=== PATIENT | male | born 1965 | race African-American/Black ===

== ENCOUNTER 2017-02-15 13:34 | Inpatient (IN) | payer OTHER ==
[2017-02-15] MEDS ORDERED: ONDANSETRON 4 MG TAB.RAPDIS SL ONE (14:22)
--- NOTE | 2017-02-15 14:23 | ER Document Report ---
ED Medical Screen (RME) - General Chief Complaint: Abdominal Pain Stated Complaint: STOAMCH PAIN Time seen by provider: 14:22 Mode of Arrival: Ambulatory Information source: Patient TRAVEL OUTSIDE OF THE [place] IN LAST 30 DAYS: No - HPI Patient complains to provider of: abdominal pain, nausea, vomiting Onset: This morning Onset/Duration: Sudden Quality of pain: Sharp Severity: Moderate Pain Level: 4 Associated Symptoms: Abdominal pain, Nausea, Vomiting Exacerbated by: Denies Relieved by: Denies Similar symptoms previously: No Recently seen / treated by doctor: No Notes: 02/15/17 14:23 Patient is a 51-year-old male with a history of asthma, who presents to emergency room complaining of epigastric abdominal pain with nausea and vomiting that started suddenly this morning, his last bowel movement was on Tuesday and was without blood, he denies any dysuria, no fever or chills, no sick contacts, no previous surgeries on the abdomen, he attempted to take Pepto- Bismol at home but vomited it back up immediately - Related Data Allergies/Adverse Reactions: No Known Allergies Allergy (Unverified 02/15/17 13:51) Past Medical History Renal/ Medical History: Denies: Hx Peritoneal Dialysis Physical Exam - Vital signs Vitals: Temp Pulse Resp BP Pulse Ox 97.6 F 89 24 H 156/95 H 100 02/15/17 13:49 02/15/17 13:49 02/15/17 13:49 02/15/17 13:49 02/15/17 13:49 Course - Vital Signs Vital signs: Temp Pulse Resp BP Pulse Ox 97.6 F 89 24 H 156/95 H 100 02/15/17 13:49 02/15/17 13:49 02/15/17 13:49 02/15/17 13:49 02/15/17 13:49
[2017-02-15 14:41] LABS: ABSOLUTE LYMPHOCYTES (AUTO) 0.7 10^3/uL (0.5-4.7); ABSOLUTE MONOCYTES (AUTO) 0.4 10^3/uL (0.1-1.4); ABSOLUTE NEUT (AUTO) 8.3 10^3/uL (1.7-8.2); BASOPHILS % (AUTO) 0.4 % (0-2); EOSINOPHILS % (AUTO) 0.1 % (0-6); HEMATOCRIT 49.6 % (37.9-51.0); HGB HCT DIFFERENCE 1.4; LYMPHOCYTES % (AUTO) 7.9 % (13-45); MEAN CORPUSCULAR HEMOGLOBIN 32.3 pg (27.0-33.4); MEAN CORPUSCULAR HGB CONC 34.4 g/dL (32.0-36.0); MEAN CORPUSCULAR VOLUME 94 fl (80-97); MONOCYTES % (AUTO) 4.1 % (3-13); RED BLOOD COUNT 5.28 10^6/uL (4.35-5.55); RED CELL DISTRIBUTION WIDTH 13.7 % (11.5-14.0); SEGMENTED NEUTROPHILS % (AUTO) 87.5 % (42-78); WHITE BLOOD COUNT 9.5 10^3/uL (4.0-10.5)
[2017-02-15 14:47] LABS: APPEARANCE,URINE CLEAR; BILIRUBIN,URINE NEGATIVE (NEGATIVE); GLUCOSE, URINE 50 mg/dL (NEGATIVE); KETONES,URINE 80 mg/dL (NEGATIVE); LEUKOCYTE ESTERASE,URINE NEGATIVE (NEGATIVE); NITRITE,URINE NEGATIVE (NEGATIVE); PROTEIN,URINE 30 mg/dL (NEGATIVE); URINE SPECIFIC GRAVITY 1.025; UROBILINOGEN,URINE NEGATIVE mg/dL (<2.0)
[2017-02-15 15:02] LABS: ALANINE AMINOTRANSFERASE 100 U/L (21-72); ALBUMIN 4.3 g/dL (3.5-5.0); ALKALINE PHOSPHATASE 87 U/L (38-126); ANION GAP 14 (5-19); ASPARTATE AMINO TRANSFERASE 105 U/L (17-59); BILIRUBIN,DIRECT 0.6 mg/dL (0.0-0.4); BILIRUBIN,TOTAL 1.6 mg/dL (0.2-1.3); BLOOD UREA NITROGEN 11 mg/dL (7-20); CALCIUM 9.5 mg/dL (8.4-10.2); CARBON DIOXIDE 26 mmol/L (22-30); CHLORIDE 99 mmol/L (98-107); CREATININE RESULT 0.81 mg/dL (0.52-1.25); GLUCOSE 168 mg/dL (75-110); POTASSIUM 4.4 mmol/L (3.6-5.0); SODIUM 138.8 mmol/L (137-145); TOTAL PROTEIN 7.7 g/dL (6.3-8.2)
[2017-02-15 15:32] LABS: LIPASE 5513.7 U/L (23-300)
[2017-02-15] MEDS ORDERED: NORMAL SALINE 1000 ML 1,000 ML IV ONE ×2 (17:08)
[2017-02-15] MEDS ORDERED: HYDROMORPHONE HCL INJ/PF 2 MG/ML AMPULE IV ONE (17:10)
[2017-02-15] MEDS ORDERED: ONDANSETRON HCL INJ/PF 4 MG/2 ML SDV IV ONE (17:10)
--- NOTE | 2017-02-15 17:11 | ER Document Report ---
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 He says he has a history of asthma. States he been drinking alcohol about a half a pint of brown oil a day. He says he stopped on Tuesday pain started this morning. States he has been nauseated vomiting about 10-11 times today. His last bowel movement was on Tuesday. Denies any previous surgeries. States he took some Pepto-Bismol at home and vomited it right back up. TRAVEL OUTSIDE OF THE [place] IN LAST 30 DAYS: No - HPI Patient complains to provider of: Abdominal pain, Vomiting Onset: This morning Timing/Duration: Gradual Quality of pain: Burning, Sharp Severity at maximum: Severe Severity in ED: Severe Pain Level: 5 Location: Epigastric Associated symptoms: Nausea, Vomiting Exacerbated by: Movement, Walking, Food Relieved by: Denies Similar symptoms previously: Yes Recently seen / treated by doctor: No - Related Data Allergies/Adverse Reactions: No Known Allergies Allergy (Unverified 02/15/17 13:51) Past Medical History - General Information source: Patient - Social History Smoking Status: Current Every Day Smoker Cigarette use (# per day): Yes - ppd Chew tobacco use (# tins/day): No Smoking Education Provided: Yes - less than 2 min Frequency of alcohol use: Heavy - 1/2 pipe of [place] a day till Tuesday he quit Drug Abuse: None Occupation: building bridges Lives with: Alone, Other - rooming house while building a bridge Family History: CAD, CVA, DM, Hyperlipidemia, Hypertension, Malignancy, Thyroid Disfunction Patient has suicidal ideation: No Patient has homicidal ideation: No - Past Medical History Cardiac Medical History: Reports: None Pulmonary Medical History: Reports: Hx Asthma EENT Medical History: Reports: None Neurological Medical History: Reports: None Endocrine Medical History: Reports: None Renal/ Medical History: Reports: None Malignancy Medical History: Reports None GI Medical History: Reports: None Musculoskeltal Medical History: Reports None Skin Medical History: Reports None Psychiatric Medical History: Reports: None Traumatic Medical History: Reports: None Infectious Medical History: Reports: None Surgical Hx: Negative Past Surgical History: Reports: None - Immunizations Hx Diphtheria, Pertussis, Tetanus Vaccination: No Review of Systems - Review of Systems Constitutional: Recent illness EENT: No symptoms reported Cardiovascular: No symptoms reported Respiratory: No symptoms reported Gastrointestinal: Abdominal pain, Nausea, Vomiting Genitourinary: No symptoms reported Male Genitourinary: No symptoms reported Musculoskeletal: No symptoms reported Skin: No symptoms reported Hematologic/Lymphatic: No symptoms reported Neurological/Psychological: No symptoms reported -: Yes All other systems reviewed and negative Physical Exam - Vital signs Vitals: Temp Pulse Resp BP Pulse Ox 97.6 F 89 24 H 156/95 H 100 02/15/17 13:49 02/15/17 13:49 02/15/17 13:49 02/15/17 13:49 02/15/17 13:49 Interpretation: Normal - General General appearance: Appears well, Alert - HEENT Head: Normocephalic, Atraumatic Eyes: Normal Pupils: PERRL - Respiratory Respiratory status: No respiratory distress Chest status: Nontender Breath sounds: Normal Chest palpation: Normal - Cardiovascular Rhythm: Regular Heart sounds: Normal auscultation Murmur: No - Abdominal Inspection: Normal Distension: No distension Bowel sounds: Normal Tenderness: Tender - Right mid abdominal tenderness, Guarding Organomegaly: No organomegaly - Back Back: Normal, Nontender - Extremities General upper extremity: Normal inspection, Nontender, Normal color, Normal ROM , Normal temperature General lower extremity: Normal inspection, Nontender, Normal color, Normal ROM , Normal temperature, Normal weight bearing. No: Milo's sign - Neurological Neuro grossly intact: Yes Cognition: Normal Orientation: AAOx4 [place] Coma Scale Eye Opening: Spontaneous [place] Coma Scale Verbal: Oriented [place] Coma Scale Motor: Obeys Commands [place] Coma Scale Total: 15 Speech: Normal Motor strength normal: LUE, RUE, LLE, RLE Sensory: Normal - Psychological Associated symptoms: Normal affect, Normal mood - Skin Skin Temperature: Warm Skin Moisture: Dry Skin Color: Normal Course - Vital Signs Vital signs: Temp Pulse Resp BP Pulse Ox 97.6 F 89 24 H 156/95 H 100 02/15/17 13:49 02/15/17 13:49 02/15/17 13:49 02/15/17 13:49 02/15/17 13:49 - Laboratory Result Diagrams: 02/15/17 14:25 02/15/17 14:25 Laboratory results interpreted by me: 02/15/17 02/15/17 02/15/17 14:25 14:25 14:25 Seg Neutrophils % 87.5 H Lymphocytes % 7.9 L Absolute Neutrophils 8.3 H Glucose 168 H Total Bilirubin 1.6 H Direct Bilirubin 0.6 H AST 105 H ALT 100 H Lipase 5513.7 H Urine Protein 30 H Urine Glucose (UA) 50 H Urine Ketones 80 H - Consults Dr. Barton Time consulted: 17:16 Reason for consultation: 02/15/17 17:16 Abdominal pain lipase 5500, pancreatitis, needs admission. Consulted provider: will come to ER Discharge - Discharge Clinical Impression: Pancreatitis, alcoholic, acute Qualifiers: Acute pancreatitis complication: unspecified Qualified Code(s): K85.20 - Alcohol induced acute pancreatitis without necrosis or infection Disposition: ADMITTED INPATIENT Admitting Provider: Eleazar Alvarenga Unit Admitted: Telemetry
[2017-02-15] MEDS ORDERED: ACETAMINOPHEN 325 MG TABLET PO PRN (18:27)
[2017-02-15] MEDS ORDERED: ONDANSETRON HCL INJ/PF 4 MG/2 ML SDV IV PRN (18:27)
[2017-02-15] MEDS ORDERED: DEXTROSE 50%-WATER 25 GM/50 ML DISP.SYRIN IV PRN ×2 (18:27)
[2017-02-15] MEDS ORDERED: DEXTROSE 40% GEL 15 GM TUBE PO PRN ×2 (18:27)
[2017-02-15] MEDS ORDERED: GLUCAGON,HUMAN RECOMB 1 MG INJ SUBCUT PRN (18:27)
[2017-02-15] MEDS ORDERED: NORMAL SALINE 1000 ML 1,000 ML with THIAMINE HCL 100 MG, MVI, ADULT NO.1 WITH VIT K 10 ... IV PRN ×4 (18:32)
[2017-02-15] MEDS ORDERED: HYDROMORPHONE HCL INJ/PF 2 MG/ML AMPULE IV PRN (18:34)
[2017-02-15] MEDS ORDERED: LORAZEPAM INJ 2 MG/1 ML VIAL IV PRN (18:34)
--- NOTE | 2017-02-15 18:49 | PDOC H&P ---
History of Present Illness Admission Date/PCP: 02/15/17 18:01 Patient complains of: Abdominal pain History of Present Illness: BHAVESH MATTHEWS is a 51 year old male, heavy alcohol beverage drinker started to develop abdominal pain on the epigastric area that is localized without any radiation earlier this morning. Pain is sharp in nature partially relieved by stooping forward. Pain is worse with oral intake of food. Subsequently pain is associated. Nausea and vomiting as well as chills and subjective fevers. No dysuria urgency or frequency, no diarrhea, he feels constipated at times, no melena, hematochezia, hematemesis. Likewise there is no hematuria. Patient's symptoms got worse and therefore he presents to the emergency room for evaluation. His last alcohol intake was 2 days ago. In the emergency room, lipase level elevated at 5513, liver function tests were mildly elevated, WBC is normal. He does not have any fever. He was given Dilaudid intravenously, intravenous fluids and was referred for admission. Patient never had an episode in the past. Past Medical History Cardiac Medical History: Reports: None Pulmonary Medical History: Reports: Asthma EENT Medical History: Reports: None Neurological Medical History: Reports: None Endocrine Medical History: Reports: None Renal/ Medical History: Reports: None Malignancy Medical History: Reports: None GI Medical History: Reports: None Musculoskeltal Medical History: Reports: None Skin Medical History: Reports: None Psychiatric Medical History: Reports: None Traumatic Medical History: Reports: None Infectious Medical History: Reports: None Past Surgical History Past Surgical History: Reports: None Social History Information Source: Patient Lives with: Alone, Other - rooming house while building a bridge Smoking Status: Current Every Day Smoker Frequency of Alcohol Use: Heavy Hx Recreational Drug Use: No Drugs: None Family History Family History: CAD, CVA, DM, Hyperlipidemia, Hypertension, Malignancy, Thyroid Disfunction Parental Family History Reviewed: Yes Children Family History Reviewed: Yes Sibling(s) Family History Reviewed.: Yes Medication/Allergy Allergies/Adverse Reactions: No Known Allergies Allergy (Unverified 02/15/17 13:51) Review of Systems Constitutional: PRESENT: chills, fever(s). ABSENT: headache(s), night sweats, weakness, weight gain, weight loss Eyes: ABSENT: visual disturbances Ears: ABSENT: hearing changes Nose, Mouth, and Throat: ABSENT: mouth pain, sore throat, vertigo Cardiovascular: ABSENT: chest pain, dyspnea on exertion, edema, orthropnea, palpitations Respiratory: ABSENT: cough, hemoptysis Gastrointestinal: PRESENT: abdominal pain, bloating, constipation, nausea, vomiting. ABSENT: coffee ground emesis, diarrhea, heartburn, hematemesis, hematochezia, melena Genitourinary: ABSENT: difficulty urinating, dysuria, hematuria Musculoskeletal: ABSENT: joint swelling Integumentary: ABSENT: pruritus, rash, wounds Neurological: PRESENT: other - Patient however admits having intermittent tremors at times that resolves w/ Alcohol intake.. ABSENT: abnormal gait, abnormal speech, confusion, dizziness, focal weakness, syncope, tremor(s) Psychiatric: ABSENT: anxiety, depression, homidical ideation, suicidal ideation Endocrine: ABSENT: cold intolerance, heat intolerance, polydipsia, polyuria Hematologic/Lymphatic: ABSENT: easy bleeding, easy bruising Physical Exam Vital Signs: Temp Pulse Resp BP Pulse Ox 97.6 F 89 24 H 156/95 H 100 02/15/17 13:49 02/15/17 13:49 02/15/17 13:49 02/15/17 13:49 02/15/17 13:49 General appearance: PRESENT: no acute distress, well-developed, well-nourished Head exam: PRESENT: atraumatic, normocephalic Eye exam: PRESENT: conjunctiva pink, EOMI, PERRLA. ABSENT: scleral icterus Ear exam: PRESENT: normal external ear exam. ABSENT: drainage Mouth exam: PRESENT: moist, neck supple, tongue midline Throat exam: ABSENT: post pharyngeal erythema, tonsillar erythema, tonsillar exudate Neck exam: ABSENT: carotid bruit, JVD, lymphadenopathy, thyromegaly Respiratory exam: PRESENT: clear to auscultation mendez. ABSENT: rales, rhonchi, wheezes Cardiovascular exam: PRESENT: RRR, +S1, +S2. ABSENT: diastolic murmur, gallop, rubs, systolic murmur Pulses: PRESENT: normal dorsalis pedis pul Vascular exam: PRESENT: normal capillary refill GI/Abdominal exam: PRESENT: guarding - voluntary, normal bowel sounds, soft, tenderness - Epigastric area. ABSENT: distended, mass, organolmegaly, rebound, rigid Rectal exam: PRESENT: deferred Extremities exam: PRESENT: full ROM. ABSENT: calf tenderness, clubbing, pedal edema Neurological exam: PRESENT: alert, awake, oriented to person, oriented to place , oriented to time, oriented to situation, other - No asterixis Psychiatric exam: PRESENT: appropriate affect, normal mood. ABSENT: homicidal ideation, suicidal ideation Skin exam: PRESENT: dry, intact, warm. ABSENT: cyanosis, rash Assessment & Plan - Diagnosis (1) Pancreatitis, alcoholic, acute Qualifiers: Acute pancreatitis complication: unspecified Qualified Code(s): K85.20 - Alcohol induced acute pancreatitis without necrosis or infection Is this a current diagnosis for this admission?: Yes (2) Alcoholic hepatitis Qualifiers: Ascites presence: without ascites Qualified Code(s): K70.10 - Alcoholic hepatitis without ascites Is this a current diagnosis for this admission?: Yes (3) Hyperglycemia Is this a current diagnosis for this admission?: Yes (4) Alcohol abuse Is this a current diagnosis for this admission?: Yes (5) Asthma Qualifiers: Asthma severity: unspecified severity Asthma complication type: uncomplicated Qualified Code(s): J45.909 - Unspecified asthma, uncomplicated Is this a current diagnosis for this admission?: Yes - Time Time Spent: 50 to 70 Minutes - Inpatient Certification Based on my medical assessment, after consideration of the patient's comorbidities, presenting symptoms, or acuity I expect that the services needed warrant INPATIENT care.: Yes Medical Necessity: Significant Comorbidiites Make Outpatient Treatment Too Risky , Need Close Monitoring Due to Risk of Patient Decompensation, Need For IV Fluids, Need for Pain Control, Risk of Complication if Not Cared For in Hospital Post Hospital Care: D/C Driver Medic Documentation - Plan Summary Plan Summary: The patient will be admitted to telemetry. We will keep the patient nothing by mouth except medications. I will hydrate the patient with normal saline. Even intravenous thiamine and folic acid and multivitamin. In the meantime, we will monitor amylase and lipase, liver function test , WBC, creatinine and electrolytes. I will put the patient on as needed Zofran as well as Dilaudid for pain. We will check fasting blood sugar as well as hemoglobin A1c. We will obtain an abdominal ultrasound. I will put the patient on scheduled oral Ativan, as needed intravenous Ativan and monitor for withdrawal symptoms. Further testing depends on the initial evaluation as outlined above.
[2017-02-15 19:57] LABS: PROTHROMBIN TIME 11.3 SEC (11.4-15.4)
[2017-02-15 19:58] LABS: PARTIAL THROMBOPLASTIN TIME 24.3 SEC (23.5-35.8)
[2017-02-15] MEDS ORDERED: ENOXAPARIN SODIUM INJ 40 MG/0.4 ML DISP.SYRIN SUBCUT ONE (20:00)
[2017-02-15] MEDS ORDERED: LORAZEPAM 1 MG TABLET PO ONE (20:00)
[2017-02-15] MEDS: NORMAL SALINE 1000 ML 1,000 ML IV PRN (20:14)
[2017-02-15] MEDS: FAMOTIDINE INJ/PF 20 MG/2 ML SDV IV SCH (23:00)
[2017-02-16] MEDS: LORAZEPAM 1 MG TABLET PO SCH ×3 (01:31→13:10)
[2017-02-16 05:11] LABS: ABSOLUTE LYMPHOCYTES (AUTO) 1.1 10^3/uL (0.5-4.7); ABSOLUTE MONOCYTES (AUTO) 0.4 10^3/uL (0.1-1.4); ABSOLUTE NEUT (AUTO) 3.3 10^3/uL (1.7-8.2); BASOPHILS % (AUTO) 0.8 % (0-2); EOSINOPHILS % (AUTO) 0.3 % (0-6); HEMATOCRIT 43.8 % (37.9-51.0); HEMOGLOBIN 15.2 g/dL (13.5-17.0); HGB HCT DIFFERENCE 1.8; LYMPHOCYTES % (AUTO) 22.7 % (13-45); MEAN CORPUSCULAR HEMOGLOBIN 32.2 pg (27.0-33.4); MEAN CORPUSCULAR HGB CONC 34.6 g/dL (32.0-36.0); MEAN CORPUSCULAR VOLUME 93 fl (80-97); MONOCYTES % (AUTO) 8.3 % (3-13); RED CELL DISTRIBUTION WIDTH 13.9 % (11.5-14.0); SEGMENTED NEUTROPHILS % (AUTO) 67.9 % (42-78); WHITE BLOOD COUNT 4.8 10^3/uL (4.0-10.5)
[2017-02-16 05:36] LABS: ALANINE AMINOTRANSFERASE 68 U/L (21-72); ALBUMIN 3.2 g/dL (3.5-5.0); ALKALINE PHOSPHATASE 62 U/L (38-126); AMYLASE 429 U/L (30-110); ANION GAP 8 (5-19); ASPARTATE AMINO TRANSFERASE 61 U/L (17-59); BILIRUBIN,DIRECT 0.4 mg/dL (0.0-0.4); BILIRUBIN,TOTAL 1.3 mg/dL (0.2-1.3); BLOOD UREA NITROGEN 8 mg/dL (7-20); CALCIUM 8.2 mg/dL (8.4-10.2); CARBON DIOXIDE 25 mmol/L (22-30); CHLORIDE 104 mmol/L (98-107); CREATININE RESULT 0.75 mg/dL (0.52-1.25); GLUCOSE 109 mg/dL (75-110); MAGNESIUM 1.9 mg/dL (1.6-2.3); PHOSPHORUS 3.4 mg/dL (2.5-4.5); POTASSIUM 3.9 mmol/L (3.6-5.0); SODIUM 137.3 mmol/L (137-145); TOTAL PROTEIN 5.9 g/dL (6.3-8.2)
[2017-02-16 05:53] LABS: LIPASE 5087.3 U/L (23-300)
[2017-02-16] MEDS: NORMAL SALINE 1000 ML 1,000 ML IV PRN ×2 (06:19→09:41)
[2017-02-16] MEDS: FAMOTIDINE INJ/PF 20 MG/2 ML SDV IV SCH ×2 (09:36→21:08)
[2017-02-16] MEDS: ENOXAPARIN SODIUM INJ 40 MG/0.4 ML DISP.SYRIN SUBCUT SCH (09:36)
[2017-02-16] MEDS: DOCUSATE SODIUM 100 MG CAPSULE PO SCH ×2 (09:36→17:46)
[2017-02-16] MEDS ORDERED: HYDROMORPHONE HCL INJ/PF 2 MG/ML AMPULE IV PRN (16:51)
--- NOTE | 2017-02-16 16:57 | PDOC PROGRESS REPORT ---
Subjective Progress Note for:: 02/16/17 Subjective:: Patient is lethargic on Ativan and likely from Dilaudid as well. Patient still has abdominal pain but no nausea or vomiting. Denies diarrhea. Denies chills or fever. No reported agitation, confusion or any tremors. Physical Exam Vital Signs: Temp Pulse Resp BP Pulse Ox 98.6 F 94 16 156/92 H 99 02/16/17 15:34 02/16/17 15:34 02/16/17 15:34 02/16/17 15:34 02/16/17 15:34 Intake & Output 02/15/17 02/16/17 02/17/17 06:59 06:59 06:59 Intake Total 1380 Output Total 0 Balance 1380 Weight 75.3 kg General appearance: PRESENT: no acute distress, well-developed Head exam: PRESENT: normocephalic Eye exam: PRESENT: EOMI Mouth exam: PRESENT: moist, neck supple Neck exam: ABSENT: JVD Respiratory exam: PRESENT: clear to auscultation mendez. ABSENT: rhonchi, wheezes Cardiovascular exam: PRESENT: RRR. ABSENT: gallop GI/Abdominal exam: PRESENT: hyperactive bowel sounds, soft, tenderness - Epigastric area. ABSENT: distended Extremities exam: ABSENT: pedal edema Psychiatric exam: ABSENT: agitated Focused psych exam: ABSENT: restlessness Skin exam: PRESENT: dry, warm. ABSENT: cyanosis Results Laboratory Results: 02/16/17 04:45 02/16/17 04:45 02/16/17 02/16/17 04:45 04:45 WBC 4.8 RBC 4.70 Hgb 15.2 Hct 43.8 MCV 93 MCH 32.2 MCHC 34.6 RDW 13.9 Plt Count 157 Seg Neutrophils % 67.9 Lymphocytes % 22.7 Monocytes % 8.3 Eosinophils % 0.3 Basophils % 0.8 Absolute Neutrophils 3.3 Absolute Lymphocytes 1.1 Absolute Monocytes 0.4 Absolute Eosinophils 0.0 Absolute Basophils 0.0 Sodium 137.3 Potassium 3.9 Chloride 104 Carbon Dioxide 25 Anion Gap 8 BUN 8 Creatinine 0.75 Est GFR ( Amer) > 60 Est GFR (Non-Af Amer) > 60 Glucose 109 Calcium 8.2 L Phosphorus 3.4 Magnesium 1.9 Total Bilirubin 1.3 AST 61 H ALT 68 Alkaline Phosphatase 62 Total Protein 5.9 L Albumin 3.2 L Amylase 429 H Lipase 5087.3 H Impressions: Abdomen CT 02/16/17 00:00 IMPRESSION: Pancreatitis without loculated pseudocyst Abdomen Ultrasound 02/16/17 00:00 IMPRESSION: 0.8 cm diameter common duct. Laboratory correlation recommended. Small ascites. Assessment & Plan - Diagnosis (1) Pancreatitis, alcoholic, acute Qualifiers: Acute pancreatitis complication: unspecified Qualified Code(s): K85.20 - Alcohol induced acute pancreatitis without necrosis or infection Is this a current diagnosis for this admission?: Yes (2) Alcoholic hepatitis Qualifiers: Ascites presence: without ascites Qualified Code(s): K70.10 - Alcoholic hepatitis without ascites Is this a current diagnosis for this admission?: Yes (3) Hyperglycemia Is this a current diagnosis for this admission?: Yes (4) Alcohol abuse Is this a current diagnosis for this admission?: Yes (5) Asthma Qualifiers: Asthma severity: unspecified severity Asthma complication type: uncomplicated Qualified Code(s): J45.909 - Unspecified asthma, uncomplicated Is this a current diagnosis for this admission?: Yes - Time Time Spent with patient: 25-34 minutes - Plan Summary Plan Summary: Review going to continue nothing by mouth, recheck electrolytes, amylase and lipase, and WBC in the morning. The patient remained afebrile. CT scan of the abdomen did not reveal any pseudocyst. We will continue to monitor pancreatitis. In the meantime we will decrease the dose of Dilaudid and Ativan. Continue multivitamin supplement. Continue supportive care.
[2017-02-16] MEDS ORDERED: LORAZEPAM 1 MG TABLET PO SCH (22:00)
[2017-02-17] MEDS: NORMAL SALINE 1000 ML 1,000 ML IV PRN (04:42)
[2017-02-17 05:02] LABS: HEMATOCRIT 38.5 % (37.9-51.0); HEMOGLOBIN 13.5 g/dL (13.5-17.0); MEAN CORPUSCULAR VOLUME 94 fl (80-97); RED BLOOD COUNT 4.09 10^6/uL (4.35-5.55); RED CELL DISTRIBUTION WIDTH 13.9 % (11.5-14.0); WHITE BLOOD COUNT 6.2 10^3/uL (4.0-10.5)
[2017-02-17 05:21] LABS: AMYLASE 297 U/L (30-110); ANION GAP 10 (5-19); BLOOD UREA NITROGEN 9 mg/dL (7-20); CALCIUM 7.9 mg/dL (8.4-10.2); CARBON DIOXIDE 24 mmol/L (22-30); CHLORIDE 105 mmol/L (98-107); CREATININE RESULT 0.81 mg/dL (0.52-1.25); GLUCOSE 69 mg/dL (75-110); POTASSIUM 3.5 mmol/L (3.6-5.0); SODIUM 138.5 mmol/L (137-145)
[2017-02-17 05:31] LABS: LIPASE 2909.1 U/L (23-300)
[2017-02-17 08:23] VITALS: BP 141/75
[2017-02-17] MEDS: FAMOTIDINE INJ/PF 20 MG/2 ML SDV IV SCH (08:40)
[2017-02-17] MEDS: DOCUSATE SODIUM 100 MG CAPSULE PO SCH (08:40)
[2017-02-17] MEDS: ENOXAPARIN SODIUM INJ 40 MG/0.4 ML DISP.SYRIN SUBCUT SCH (08:55)
--- NOTE | 2017-02-17 09:14 | PDOC PROGRESS REPORT ---
Subjective Progress Note for:: 02/17/17 Subjective:: Patient is wanting to go home, no nausea or vomiting, abdominal pain has improved. Patient however remained nothing by mouth. Lipase down to 2900. No withdrawal symptoms reported. He is more awake and alert, active and has been placed on hold. Patient requesting to eat. Physical Exam Vital Signs: Temp Pulse Resp BP Pulse Ox 98.7 F 91 16 141/75 H 98 02/17/17 07:20 02/17/17 07:20 02/17/17 07:20 02/17/17 07:20 02/17/17 07:20 Intake & Output 02/16/17 02/17/17 02/18/17 06:59 06:59 06:59 Intake Total 1380 3600 Output Total 0 0 Balance 1380 3600 Weight 75.3 kg 78.2 kg General appearance: PRESENT: no acute distress, well-developed Head exam: PRESENT: normocephalic Eye exam: PRESENT: conjunctiva pink, EOMI Mouth exam: PRESENT: moist, neck supple Neck exam: ABSENT: JVD Respiratory exam: PRESENT: clear to auscultation mendez Cardiovascular exam: PRESENT: RRR GI/Abdominal exam: PRESENT: soft, tenderness - Epigastric area. ABSENT: distended, guarding Extremities exam: ABSENT: pedal edema Neurological exam: PRESENT: alert, awake, oriented to person, oriented to place , oriented to time, other - No tremors or asterixis Skin exam: PRESENT: dry, warm. ABSENT: cyanosis Results Laboratory Results: 02/17/17 04:42 02/17/17 04:42 02/17/17 02/17/17 04:42 04:42 WBC 6.2 RBC 4.09 L Hgb 13.5 Hct 38.5 MCV 94 MCH 33.0 MCHC 35.0 RDW 13.9 Plt Count 124 L Sodium 138.5 Potassium 3.5 L Chloride 105 Carbon Dioxide 24 Anion Gap 10 BUN 9 Creatinine 0.81 Est GFR ( Amer) > 60 Est GFR (Non-Af Amer) > 60 Glucose 69 L Calcium 7.9 L Amylase 297 H Lipase 2909.1 H Impressions: Abdomen CT 02/16/17 00:00 IMPRESSION: Pancreatitis without loculated pseudocyst Abdomen Ultrasound 02/16/17 00:00 IMPRESSION: 0.8 cm diameter common duct. Laboratory correlation recommended. Small ascites. Assessment & Plan - Diagnosis (1) Pancreatitis, alcoholic, acute Qualifiers: Acute pancreatitis complication: unspecified Qualified Code(s): K85.20 - Alcohol induced acute pancreatitis without necrosis or infection Is this a current diagnosis for this admission?: Yes (2) Alcoholic hepatitis Qualifiers: Ascites presence: without ascites Qualified Code(s): K70.10 - Alcoholic hepatitis without ascites Is this a current diagnosis for this admission?: Yes (3) Hyperglycemia Is this a current diagnosis for this admission?: Yes (4) Alcohol abuse Is this a current diagnosis for this admission?: Yes (5) Asthma Qualifiers: Asthma severity: unspecified severity Asthma complication type: uncomplicated Qualified Code(s): J45.909 - Unspecified asthma, uncomplicated Is this a current diagnosis for this admission?: Yes - Time Time Spent with patient: 25-34 minutes - Plan Summary Plan Summary: We will try the patient on clear liquid diet today. Patient agreed to stay to the hospital for another 24 hours. We will recheck WBC, amylase and lipase, electrolytes and creatinine. Discontinue Ativan, no withdrawal symptoms. We will continue to monitor. Continue current pain management at this time.
[2017-02-17] MEDS ORDERED: POTASSI CL 20 MEQ/50 ML RIDER 50 ML IV SCH (10:00)
--- NOTE | 2017-02-17 16:24 | PDOC DISCHARGE SUMMARY ---
General - Admit/Disc Date/PCP Admission Date/Primary Care Provider: 02/15/17 18:27 Discharge Date: 02/17/17 - Discharge Diagnosis (1) Pancreatitis, alcoholic, acute Is this a current diagnosis for this admission?: Yes (2) Alcoholic hepatitis Is this a current diagnosis for this admission?: Yes (3) Hyperglycemia Is this a current diagnosis for this admission?: Yes (4) Alcohol abuse Is this a current diagnosis for this admission?: Yes (5) Asthma Is this a current diagnosis for this admission?: Yes - Additional Information Resuscitation Status: Full Code Home Medications: No Home Medications 02/15/17 Additional Information: Patient left AGAINST MEDICAL ADVICE. History of Present Illness Patient complains of: Abdominal pain History of Present Illness: BHAVESH MATTHEWS is a 51 year old male, heavy alcohol beverage drinker started to develop abdominal pain on the epigastric area that is localized without any radiation earlier this morning. Pain is sharp in nature partially relieved by stooping forward. Pain is worse with oral intake of food. Subsequently pain is associated. Nausea and vomiting as well as chills and subjective fevers. No dysuria urgency or frequency, no diarrhea, he feels constipated at times, no melena, hematochezia, hematemesis. Likewise there is no hematuria. Patient's symptoms got worse and therefore he presents to the emergency room for evaluation. His last alcohol intake was 2 days ago. In the emergency room, lipase level elevated at 5513, liver function tests were mildly elevated, WBC is normal. He does not have any fever. He was given Dilaudid intravenously, intravenous fluids and was referred for admission. Patient never had an episode in the past. Hospital Course Hospital Course: The patient was admitted to telemetry. The patient was placed nothing by mouth , intravenous fluid hydration was started. Intravenous Dilaudid was given for pain. Patient was started on Ativan for possible withdrawal as well. Patient' s lipase was monitored and it was trending down. Still however elevated about 2900. The patient's abdominal discomfort improved. No nausea or vomiting. Patient requested to be discharged however lipase still elevated, and has not tried on any advancement in diet. Explained to patient untreated pancreatitis and side effect, including hemorrhage and necrosis intra-abdominal and she understood. She agreed to stay for another day and therefore a trial of advancing the diet was made. His course was noted for sedation brought about by the benzodiazepine, and narcotic. Eventually the dose of the narcotic was decreased, and the benzodiazepines were held. His mental status improved and went back to baseline. However the patient later on decided to leave the hospital and eventually signed out AGAINST MEDICAL ADVICE. Physical Exam Vital Signs: Temp Pulse Resp BP Pulse Ox 98.7 F 91 16 141/75 H 98 02/17/17 07:20 02/17/17 07:20 02/17/17 07:20 02/17/17 07:20 02/17/17 07:20 Intake & Output 02/16/17 02/17/17 02/18/17 06:59 06:59 06:59 Intake Total 1380 3600 Output Total 0 0 Balance 1380 3600 Weight 75.3 kg 78.2 kg Exam: Patient left AGAINST MEDICAL ADVICE. No examination performed. Results Laboratory Results: 02/17/17 04:42 02/17/17 04:42 02/17/17 02/17/17 04:42 04:42 WBC 6.2 RBC 4.09 L Hgb 13.5 Hct 38.5 MCV 94 MCH 33.0 MCHC 35.0 RDW 13.9 Plt Count 124 L Sodium 138.5 Potassium 3.5 L Chloride 105 Carbon Dioxide 24 Anion Gap 10 BUN 9 Creatinine 0.81 Est GFR ( Amer) > 60 Est GFR (Non-Af Amer) > 60 Glucose 69 L Calcium 7.9 L Amylase 297 H Lipase 2909.1 H Impressions: Abdomen CT 02/16/17 00:00 IMPRESSION: Pancreatitis without loculated pseudocyst Abdomen Ultrasound 02/16/17 00:00 IMPRESSION: 0.8 cm diameter common duct. Laboratory correlation recommended. Small ascites. Qualifiers PATEINT BEING DISCHARGED WITH ANY OF THE FOLLOWING DIAGNOSIS?: No Plan Discharge Plan: Patient left AGAINST MEDICAL ADVICE.
== END 2017-02-17 11:25 | disposition left against medical advice (07) | DRG 440 ==
LOC: ER 13:34 → UNDOADMIN 18:01 → EH 18:01 → 3W 22:36
DX: K85.20 Alcohol induced acute pancreatitis without necrosis or infection (principal); F10.20 Alcohol dependence, uncomplicated; K70.10 Alcoholic hepatitis without ascites; R73.9 Hyperglycemia, unspecified; J45.909 Unspecified asthma, uncomplicated; F17.210 Nicotine dependence, cigarettes, uncomplicated; Y90.0 Blood alcohol level of less than 20 mg/100 ml; Z60.2 Problems related to living alone
CPT/HCPCS: 36415; 74160; 76700; 80048; 80053; 80076; 80307; 81001; 82150; 83036; 83690; 83735; 84100; 85025; 85027; 85610; 85730; 99285; J1170; J1650; J2405; J3411; J3490; J7030; S0028; S0119

== ENCOUNTER 2017-02-18 00:15 | Inpatient (IN) | payer OTHER ==
[2017-02-18] MEDS ORDERED: HYDROMORPHONE HCL INJ/PF 2 MG/ML AMPULE IV ONE ×2 (03:00→04:25)
[2017-02-18] MEDS ORDERED: NORMAL SALINE 250 ML IV ONE (03:00)
--- NOTE | 2017-02-18 03:00 | ER Document Report ---
ED GI/ - General Chief Complaint: Abdominal Pain Stated Complaint: ABDOMINAL PAIN Notes: The patient is a 51-year-old male, past medical history former heavy drinker, pancreatitis, presents with continuing epigastric pain, nausea and vomiting. In addition he had 2 loose stools today. He was admitted for the past 3 days for pancreatitis, but had to leave AMA yesterday due to a court date that he had to attend. He was on a liquid diet today. 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 He said that he has not had an alcoholic drink in 4 days and has no symptoms of withdrawal at this time. Denies hematemesis, fevers, dysuria, hematuria, headache, chest pain or shortness of breath. TRAVEL OUTSIDE OF THE [place] IN LAST 30 DAYS: No - Related Data Allergies/Adverse Reactions: No Known Allergies Allergy (Unverified 02/15/17 13:51) Past Medical History - General Information source: Patient - Social History Smoking Status: Current Every Day Smoker Frequency of alcohol use: Heavy Drug Abuse: None Family History: CAD, CVA, DM, Hyperlipidemia, Hypertension, Malignancy, Thyroid Disfunction Pulmonary Medical History: Reports: Hx Asthma Renal/ Medical History: Denies: Hx Peritoneal Dialysis Psychiatric Medical History: Denies: Hx Depression - Immunizations Hx Diphtheria, Pertussis, Tetanus Vaccination: No Review of Systems - Review of Systems Notes: REVIEW OF SYSTEMS: CONSTITUTIONAL: -fevers, -chills EENT: -eye pain, -difficulty swallowing, -nasal congestion CARDIOVASCULAR:-chest pain, -syncope. RESPIRATORY: -cough, -SOB GASTROINTESTINAL: +abdominal pain, +nausea, +vomiting GENITOURINARY: -dysuria, -hematuria MUSCULOSKELETAL: -back pain, -neck pain SKIN: -rash or skin lesions. HEMATOLOGIC: -easy bruising or bleeding. LYMPHATIC: -swollen, enlarged glands. NEUROLOGICAL: -altered mental status or loss of consciousness, -headache, - neurologic symptoms PSYCHIATRIC: -anxiety, -depression. ALL OTHER SYSTEMS REVIEWED AND NEGATIVE. Physical Exam - Notes Notes: PHYSICAL EXAMINATION: GENERAL: Uncomfortable HEAD: Atraumatic, normocephalic. EYES: Pupils equal round and reactive to light, extraocular movements intact, sclera anicteric, conjunctiva are normal. ENT: nares patent, oropharynx clear without exudates. Moist mucous membranes. NECK: Normal range of motion, supple without lymphadenopathy LUNGS: Breath sounds clear to auscultation bilaterally and equal. No wheezes rales or rhonchi. HEART: Regular rate and rhythm without murmurs ABDOMEN: Soft, moderate tenderness in epigastric region, normal bowel sounds EXTREMITIES: Normal range of motion, no pitting or edema. No cyanosis. NEUROLOGICAL: Cranial nerves grossly intact. Normal speech, normal gait. Normal sensory, motor, and reflex exams. PSYCH: Normal mood, normal affect. SKIN: Warm, Dry, normal turgor, no rashes or lesions noted. Course - Re-evaluation Re-evalutation: Patient remains with signs and symptoms of pancreatitis, including continuing epigastric pain, nausea and vomiting when he eats. His lipase decreased to 1700 from 2900 yesterday. He is slightly hypokalemic and his potassium was repleted in the ER. His CT performed 3 days ago showed pancreatitis without a loculated pseudocyst and his ultrasound showed a dilated CBD but no stones. His pancreatitis is most likely from his chronic alcohol use. When he left AMA yesterday due to a court date, he was encouraged to return if his symptoms did not improve. Patient requires admission for further treatment of his pancreatitis. 02/18/17 04:[address] Noonan and he has accepted patient as Obs to Tele. Pt's pain improved and his nausea improved. - Laboratory Result Diagrams: 02/18/17 02:59 02/18/17 02:59 Laboratory results interpreted by me: 02/18/17 02/18/17 02:59 02:59 RBC 4.16 L RDW 14.1 H Plt Count 147 L Potassium 3.3 L Carbon Dioxide 31 H BUN 6 L Glucose 133 H Albumin 3.4 L Lipase 1795.7 H Discharge - Discharge Clinical Impression: Pancreatitis, acute Qualifiers: Pancreatitis type: alcohol induced Acute pancreatitis complication: no infection or necrosis Qualified Code(s): K85.20 - Alcohol induced acute pancreatitis without necrosis or infection Condition: Stable Disposition: ADMITTED OBSERVATION Admitting Provider: Eleazar Noonan Unit Admitted: Telemetry
[2017-02-18] MEDS ORDERED: ONDANSETRON HCL INJ/PF 4 MG/2 ML SDV IV ONE (03:01)
[2017-02-18 03:11] LABS: ABSOLUTE EOSINOPHILS # (AUTO) 0.1 10^3/uL (0.0-0.6); ABSOLUTE LYMPHOCYTES (AUTO) 1.6 10^3/uL (0.5-4.7); ABSOLUTE MONOCYTES (AUTO) 0.7 10^3/uL (0.1-1.4); ABSOLUTE NEUT (AUTO) 5.1 10^3/uL (1.7-8.2); BASOPHILS % (AUTO) 0.2 % (0-2); EOSINOPHILS % (AUTO) 0.9 % (0-6); HEMATOCRIT 39.4 % (37.9-51.0); HEMOGLOBIN 13.6 g/dL (13.5-17.0); HGB HCT DIFFERENCE 1.4; LYMPHOCYTES % (AUTO) 20.9 % (13-45); MEAN CORPUSCULAR HEMOGLOBIN 32.6 pg (27.0-33.4); MEAN CORPUSCULAR HGB CONC 34.5 g/dL (32.0-36.0); MEAN CORPUSCULAR VOLUME 95 fl (80-97); RED BLOOD COUNT 4.16 10^6/uL (4.35-5.55); RED CELL DISTRIBUTION WIDTH 14.1 % (11.5-14.0); WHITE BLOOD COUNT 7.4 10^3/uL (4.0-10.5)
[2017-02-18 03:22] LABS: ALANINE AMINOTRANSFERASE 57 U/L (21-72); ALBUMIN 3.4 g/dL (3.5-5.0); ALKALINE PHOSPHATASE 52 U/L (38-126); ANION GAP 7 (5-19); ASPARTATE AMINO TRANSFERASE 58 U/L (17-59); BILIRUBIN,DIRECT 0.4 mg/dL (0.0-0.4); BILIRUBIN,TOTAL 1.3 mg/dL (0.2-1.3); BLOOD UREA NITROGEN 6 mg/dL (7-20); CALCIUM 8.5 mg/dL (8.4-10.2); CARBON DIOXIDE 31 mmol/L (22-30); CHLORIDE 100 mmol/L (98-107); CREATININE RESULT 0.72 mg/dL (0.52-1.25); GLUCOSE 133 mg/dL (75-110); LIPASE 1795.7 U/L (23-300); POTASSIUM 3.3 mmol/L (3.6-5.0); SODIUM 138.3 mmol/L (137-145); TOTAL PROTEIN 6.7 g/dL (6.3-8.2)
[2017-02-18 03:24] LABS: ALCOHOL < 10 mg/dL (NONE DETECTED)
[2017-02-18] MEDS ORDERED: POTASSI CL 20 MEQ/50 ML RIDER 50 ML IV SCH (03:54)
[2017-02-18] MEDS ORDERED: NICOTINE 21 MG/24 HR PATCH.TD24 TD PRN (05:48)
[2017-02-18] MEDS ORDERED: MORPHINE SULFATE 10 MG/ML INJ IV PRN (05:49)
[2017-02-18] MEDS ORDERED: IPRATROPIUM/ALBUTEROL 0.5-2.5 MG/3 ML AMPUL NEB PRN (05:51)
[2017-02-18] MEDS ORDERED: ACETAMINOPHEN 325 MG TABLET PO PRN (05:51)
[2017-02-18] MEDS ORDERED: PROMETHAZINE HCL INJ 25 MG/1 ML VIAL IV PRN (05:59)
[2017-02-18] MEDS ORDERED: MORPHINE SULFATE 10 MG/ML INJ ONE (06:02)
[2017-02-18] MEDS ORDERED: LORAZEPAM INJ 2 MG/1 ML VIAL ONE (06:05)
--- NOTE | 2017-02-18 06:13 | PDOC H&P ---
History of Present Illness Admission Date/PCP: 02/18/17 04:38 None; pt. from [facility]; working on local bridge construction Patient complains of: abd pain History of Present Illness: BHAVESH MATTHEWS is a 51 year old -Surinamese male with underlying tobacco dependency, pack of cigarettes a day, along with alcohol dependency, fifth of whiskey every day and a half, although none for the past 4 days, who presents to the emergency room for continued complaints of sharp epigastric pain radiating to his back. Worse with lying down. Quite pronounced pain at its worst. Questionable fever and chills. No nausea vomiting, or diarrhea. Hospitalized on our service the through the of this month with discharge diagnoses of acute alcoholic pancreatitis, and alcoholic hepatitis, along with hyperglycemia. Patient left AGAINST MEDICAL ADVICE to attend a court date. History and physical and discharge summary have been reviewed. No history of peptic ulcer disease. Only one episode of alcohol withdrawal symptoms. Patient has been discussed with emergency room physician who evaluated the patient. . Laboratory results are listed in [employer] and are reviewed. Social history/personal habits: . 5 children. 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 Personal habits as noted above. No illicit drug use. Allergies/adverse reactions NKDA. Home medications consist only of approximately 1 Goody powder per day. REVIEW OF SYSTEMS: Constitutional: See history and present illness. Eyes: No current vision complaints. ENT: No swallowing problems or complaints. No hearing problems or complaints. Pulmonary: No current complaints. Cardiovascular: No current complaints, including chest pain. Gastrointestinal: See history and present illness. Skin: No current complaints, including rashes. Hematologic: No unusual easy bruising or bleeding. Neurologic: No current complaints, including numbness or tingling. Musculoskeletal: Joint pain from arthritis. Psychiatric: No current complaints, including anxiety or depression. Endocrine: No current complaints, including polyuria. Genitourinary: No current complaints, including dysuria. PHYSICAL EXAMINATION: 5 feet 9 inches tall. 75.1 kg. BMI 24.4 kg/m. Pulse 67 and regular. Blood pressure 139/89. Respirations are 22 and unlabored. 100% saturation on room air. Temperature 99.2. Well-nourished well-developed -[place]inamese male appearing approximately stated age. Pleasant awake alert and cooperative. No obvious distress other than perhaps mildly anxious. Also appears to feel a bit under the weather, so to speak. Skin is warm and dry. No grossly obvious evidence of rash in areas of skin examined. No subcutaneous nodules palpated. Extensive tattoos. ENT: Hearing grossly normal to normal conversation. Tongue midline on protrusion pink and slightly tacky. Eyes: No scleral icterus. Pupils equal and reactive to light at 4 mm. Frierson conjunctivae. Neck is supple and nontender to gentle active range of motion and palpation. Midline trachea. No palpable thyroid nodule mass enlargement or tenderness. Lymphatic: No palpable cervical or clavicular nodes. Neck and lymphatic exams limited by patient body habitus. Psychiatric: Fair insight into acute and chronic medical issues. Oriented to time location and why here. Lungs: Auscultation reveals clear and equal breath sounds bilaterally. No use of accessory respiratory muscles. Cardiovascular: Heart regular rate and rhythm, without gallop murmur or rub. No carotid or abdominal aortic bruits. No ankle or pedal edema. palpable dorsalis pedis pulses. Abdomen: soft, slightly, distended with positive bowel sounds. Mild epigastric tenderness to palpation. No evidence of guarding or peritoneal signs. Unable to adequately evaluate abdomen for masses or organomegaly due to distention and discomfort. Extremities: Feet are warm and dry. No calf tenderness to compression. No grossly obvious visual evidence of calf swelling. Gentle manipulation of lower extremities fails to reveal any obvious evidence of injury or instability to knees hips or ankles. Neurologic: Moves upper extremities grossly normally. Patellar reflexes absent. Absent Babinski. Light touch is intact at feet. Dorsiflexion and plantarflexion of feet 5 / 5 and symmetric. Past Medical History Cardiac Medical History: Denies: Congestive Heart Failure, DVT, Myocardial Infarction, Hyperlipidema, Hypertension Pulmonary Medical History: Reports: Asthma Denies: Chronic Obstructive Pulmonary Disease (COPD) EENT Medical History: Denies: Eyes, Ears, Throat Neurological Medical History: Denies: Hemorrhagic CVA, Ischemic CVA, Seizures Endocrine Medical History: Denies: Diabetes Mellitus Type 1, Diabetes Mellitus Type 2, Hyperthyroidism, Hypothyroidism Renal/ Medical History: Reports: None GI Medical History: Reports: Other - History of pancreatitis. Denies: Cirrhosis, Gastroesophageal Reflux Disease, Hepatitis, Peptic Ulcer Disease Musculoskeltal Medical History: Reports: Arthritis Skin Medical History: Reports: None Psychiatric Medical History: Reports: Alcohol Dependency, Tobacco Dependency Denies: Depression, General Anxiety Disorder, Substance Abuse Hematology: Reports: None Infectious Medical History: Denies: Hepatitis B, Hepatitis C Past Surgical History Past Surgical History: Reports: None Social History Information Source: Patient, Emergency Med Personnel, [facility] Records Lives with: Alone Smoking Status: Current Every Day Smoker Frequency of Alcohol Use: Heavy Hx Recreational Drug Use: No Drugs: None Hx Prescription Drug Abuse: No - Advance Directive Resuscitation Status: Full Code Surrogate healthcare decision maker:: His mother Family History Family History: CAD, CVA, DM, Hyperlipidemia, Hypertension, Malignancy, Thyroid Disfunction Parental Family History Reviewed: Yes - father of natural causes. Mother is diabetic. Children Family History Reviewed: Yes - Healthy Sibling(s) Family History Reviewed.: Yes - Healthy Medication/Allergy Home Medications: No Home Medications 02/15/17 Allergies/Adverse Reactions: No Known Allergies Allergy (Unverified 02/15/17 13:51) Physical Exam Vital Signs: Temp Pulse Resp BP Pulse Ox 99.2 F 101 H 17 164/91 H 100 02/18/17 00:26 02/18/17 00:26 02/18/17 00:26 02/18/17 04:16 02/18/17 04:16 Assessment & Plan - Diagnosis (1) Elevated blood pressure reading without diagnosis of hypertension Is this a current diagnosis for this admission?: YesPlan: Likely due to pain. When necessary blood pressure medicine if necessary. (2) Hypokalemia Is this a current diagnosis for this admission?: YesPlan: Potassium replacement, with follow-up chemistry. (3) Noncompliance Is this a current diagnosis for this admission?: Yes (4) Pancreatitis, alcoholic, acute Qualifiers: Acute pancreatitis complication: unspecified Qualified Code(s): K85.20 - Alcohol induced acute pancreatitis without necrosis or infection Is this a current diagnosis for this admission?: YesPlan: Usual pancreatitis protocol, including strict intake and output, ice chips only , vigorous IV fluid hydration, IV Pepcid for gastritis prophylaxis, and when necessary medications for control of pain and nausea and vomiting. I have strongly encouraged patient not to get out of bed without notifying staff , to avoid a fall with injury. Knee high SCDs for DVT prophylaxis, [along with subcutaneous Lovenox . Impression and plans were discussed with patient, who concurs. Time spent in evaluation and management of patient: 60 minutes. (5) Alcohol dependency Qualifiers: Substance use status: uncomplicated Qualified Code(s): F10.20 - Alcohol dependence, uncomplicated Is this a current diagnosis for this admission?: YesPlan: Daily banana bag, along with when necessary Ativan. Observe closely for signs of alcohol withdrawal. None at present. (6) Tobacco dependency Is this a current diagnosis for this admission?: YesPlan: When necessary nicotine patch. (7) Asthma Qualifiers: Asthma severity: mild intermittent Asthma complication type: uncomplicated Qualified Code(s): J45.20 - Mild intermittent asthma, uncomplicated Is this a current diagnosis for this admission?: YesPlan: No evidence of acute exacerbation of same. When necessary DuoNeb. - Inpatient Certification Based on my medical assessment, after consideration of the patient's comorbidities, presenting symptoms, or acuity I expect that the services needed warrant INPATIENT care.: Yes I certify that my determination is in accordance with my understanding of Medicare's requirements for reasonable and necessary INPATIENT services [42 CFR 412.3e].: Yes Medical Necessity: Need For IV Fluids, Need for Pain Control, Risk of Complication if Not Cared For in Hospital Post Hospital Care: D/C or Transfer Summary
[2017-02-18] MEDS: LORAZEPAM INJ 2 MG/1 ML VIAL IV PRN ×2 (06:15→13:24)
[2017-02-18 07:12] LABS: ADD ON TESTING BLD IN LAB ACKNOWLEDGE
[2017-02-18 07:16] LABS: URINE BARBITURATES SCREEN NEGATIVE; URINE METHADONE SCREEN NEGATIVE; URINE OPIATES LOW NEGATIVE; URINE PHENCYCLIDINE SCREEN NEGATIVE
[2017-02-18 07:40] LABS: MAGNESIUM 2.1 mg/dL (1.6-2.3)
[2017-02-18] MEDS: FAMOTIDINE INJ/PF 20 MG/2 ML SDV IV SCH ×2 (13:24→21:27)
[2017-02-18] MEDS: ENOXAPARIN SODIUM INJ 40 MG/0.4 ML DISP.SYRIN SUBCUT SCH (13:24)
[2017-02-18] MEDS: HYDROMORPHONE HCL INJ/PF 2 MG/ML AMPULE IV PRN ×3 (14:03→21:24)
[2017-02-19] MEDS: HYDROMORPHONE HCL INJ/PF 2 MG/ML AMPULE IV PRN ×3 (03:00→15:47)
[2017-02-19] MEDS: POTASSI CL 20 MEQ/NS 1L 1,000 ML IV PRN ×2 (03:02→09:36)
[2017-02-19 04:28] LABS: ABSOLUTE EOSINOPHILS # (AUTO) 0.1 10^3/uL (0.0-0.6); ABSOLUTE LYMPHOCYTES (AUTO) 1.4 10^3/uL (0.5-4.7); ABSOLUTE MONOCYTES (AUTO) 0.6 10^3/uL (0.1-1.4); ABSOLUTE NEUT (AUTO) 3.3 10^3/uL (1.7-8.2); BASOPHILS % (AUTO) 0.7 % (0-2); EOSINOPHILS % (AUTO) 1.8 % (0-6); HEMATOCRIT 34.9 % (37.9-51.0); HGB HCT DIFFERENCE 1.1; LYMPHOCYTES % (AUTO) 25.1 % (13-45); MEAN CORPUSCULAR HEMOGLOBIN 32.7 pg (27.0-33.4); MEAN CORPUSCULAR HGB CONC 34.5 g/dL (32.0-36.0); MEAN CORPUSCULAR VOLUME 95 fl (80-97); MONOCYTES % (AUTO) 11.4 % (3-13); RED BLOOD COUNT 3.68 10^6/uL (4.35-5.55); RED CELL DISTRIBUTION WIDTH 13.8 % (11.5-14.0); WHITE BLOOD COUNT 5.4 10^3/uL (4.0-10.5)
[2017-02-19 04:38] LABS: AMYLASE 148 U/L (30-110); ANION GAP 8 (5-19); BLOOD UREA NITROGEN 4 mg/dL (7-20); CALCIUM 8.3 mg/dL (8.4-10.2); CARBON DIOXIDE 28 mmol/L (22-30); CHLORIDE 103 mmol/L (98-107); CREATININE RESULT 0.72 mg/dL (0.52-1.25); GLUCOSE 114 mg/dL (75-110); LIPASE 1961.5 U/L (23-300); POTASSIUM 3.4 mmol/L (3.6-5.0); SODIUM 139.1 mmol/L (137-145)
[2017-02-19] MEDS: ENOXAPARIN SODIUM INJ 40 MG/0.4 ML DISP.SYRIN SUBCUT SCH (08:32)
[2017-02-19] MEDS: FAMOTIDINE INJ/PF 20 MG/2 ML SDV IV SCH (09:36)
[2017-02-19] MEDS ORDERED: DEXTROSE 50%-WATER 25 GM/50 ML DISP.SYRIN IV PRN ×2 (09:39)
[2017-02-19] MEDS ORDERED: GLUCAGON,HUMAN RECOMB 1 MG INJ SUBCUT PRN (09:39)
[2017-02-19] MEDS ORDERED: DEXTROSE 40% GEL 15 GM TUBE PO PRN ×2 (09:39)
[2017-02-19] MEDS ORDERED: POTASSIUM CHLORIDE 10 MEQ TABLET.SA PO ONE (09:44)
--- NOTE | 2017-02-19 09:48 | PDOC PROGRESS REPORT ---
Subjective Progress Note for:: 02/19/17 Subjective:: Patient readmitted for abdominal pain and pancreatitis. Signed out AGAINST MEDICAL ADVICE the other day. On admission, lipase level was 1700. Patient able to tolerate oral intake. Still with abdominal pain. No nausea or vomiting , no diarrhea, no chills or fever, no elevated WBC. Physical Exam Vital Signs: Temp Pulse Resp BP Pulse Ox 98.5 F 81 17 136/76 H 100 02/19/17 07:00 02/19/17 07:00 02/19/17 07:00 02/19/17 07:00 02/19/17 07:00 Intake & Output 02/18/17 02/19/17 02/20/17 06:59 06:59 06:59 Intake Total 1750 Output Total 1580 Balance 170 Weight 75 kg General appearance: PRESENT: no acute distress, cooperative Head exam: PRESENT: normocephalic Eye exam: PRESENT: conjunctiva pink, EOMI Mouth exam: PRESENT: moist, neck supple Neck exam: ABSENT: JVD Respiratory exam: PRESENT: clear to auscultation mendez. ABSENT: rhonchi, wheezes Cardiovascular exam: PRESENT: RRR. ABSENT: gallop GI/Abdominal exam: PRESENT: normal bowel sounds, soft, tenderness - Epigastric area. ABSENT: distended, rebound Extremities exam: ABSENT: pedal edema Neurological exam: PRESENT: alert, awake, oriented to situation Skin exam: PRESENT: dry, warm. ABSENT: cyanosis Results Laboratory Results: 02/19/17 03:55 02/19/17 03:55 02/19/17 02/19/17 03:55 03:55 WBC 5.4 RBC 3.68 L Hgb 12.0 L Hct 34.9 L MCV 95 MCH 32.7 MCHC 34.5 RDW 13.8 Plt Count 125 L Seg Neutrophils % 61.0 Lymphocytes % 25.1 Monocytes % 11.4 Eosinophils % 1.8 Basophils % 0.7 Absolute Neutrophils 3.3 Absolute Lymphocytes 1.4 Absolute Monocytes 0.6 Absolute Eosinophils 0.1 Absolute Basophils 0.0 Sodium 139.1 Potassium 3.4 L Chloride 103 Carbon Dioxide 28 Anion Gap 8 BUN 4 L Creatinine 0.72 Est GFR ( Amer) > 60 Est GFR (Non-Af Amer) > 60 Glucose 114 H Calcium 8.3 L Amylase 148 H Lipase 1961.5 H Assessment & Plan - Diagnosis (1) Pancreatitis, acute Qualifiers: Pancreatitis type: alcohol induced Acute pancreatitis complication: no infection or necrosis Qualified Code(s): K85.20 - Alcohol induced acute pancreatitis without necrosis or infection Is this a current diagnosis for this admission?: Yes (2) Alcohol abuse Is this a current diagnosis for this admission?: Yes (3) Alcoholic hepatitis Qualifiers: Ascites presence: without ascites Qualified Code(s): K70.10 - Alcoholic hepatitis without ascites Is this a current diagnosis for this admission?: Yes (4) Elevated blood pressure reading without diagnosis of hypertension Is this a current diagnosis for this admission?: Yes - Time Time Spent with patient: 25-34 minutes - Plan Summary Plan Summary: Keep the patient nothing by mouth. DC liquid diet. Recheck lipase and amylase in the morning. Monitor electrolytes and WBC. Change intravenous fluids to dextrose containing solution. Replace potassium. Continue pain management for now with Dilaudid. Continue supplements.
[2017-02-19] MEDS: NORMAL SALINE 1000 ML 1,000 ML with THIAMINE HCL 100 MG, MVI, ADULT NO.1 WITH VIT K 10 ... IV PRN ×4 (19:20)
[2017-02-20] MEDS: FAMOTIDINE INJ/PF 20 MG/2 ML SDV IV SCH ×3 (00:02→22:11)
[2017-02-20] MEDS: HYDROMORPHONE HCL INJ/PF 2 MG/ML AMPULE IV PRN ×6 (00:04→22:09)
[2017-02-20 05:13] LABS: HEMATOCRIT 35.4 % (37.9-51.0); HEMOGLOBIN 12.2 g/dL (13.5-17.0); HGB HCT DIFFERENCE 1.2; MEAN CORPUSCULAR HGB CONC 34.5 g/dL (32.0-36.0); MEAN CORPUSCULAR VOLUME 95 fl (80-97); RED BLOOD COUNT 3.71 10^6/uL (4.35-5.55); RED CELL DISTRIBUTION WIDTH 13.5 % (11.5-14.0); WHITE BLOOD COUNT 5.6 10^3/uL (4.0-10.5)
[2017-02-20 05:27] LABS: AMYLASE 147 U/L (30-110); ANION GAP 9 (5-19); BLOOD UREA NITROGEN 4 mg/dL (7-20); CALCIUM 8.8 mg/dL (8.4-10.2); CARBON DIOXIDE 26 mmol/L (22-30); CHLORIDE 105 mmol/L (98-107); CREATININE RESULT 0.72 mg/dL (0.52-1.25); GLUCOSE 89 mg/dL (75-110); LIPASE 1766.9 U/L (23-300); POTASSIUM 3.9 mmol/L (3.6-5.0)
[2017-02-20] MEDS: DEXTROSE 5%-NORMAL SALINE 1,000 ML IV PRN ×2 (05:43→22:16)
[2017-02-20] MEDS: ENOXAPARIN SODIUM INJ 40 MG/0.4 ML DISP.SYRIN SUBCUT SCH (08:55)
--- NOTE | 2017-02-20 09:15 | PDOC PROGRESS REPORT ---
Subjective Progress Note for:: 02/20/17 Subjective:: The patient feels hungry and adamant about eating. Denies any nausea and vomiting, no diarrhea. No chills or fever. No increasing abdominal pain. No shortness of breath, no chest pain. Physical Exam Vital Signs: Temp Pulse Resp BP Pulse Ox 98.7 F 72 18 131/81 H 96 02/20/17 08:00 02/20/17 08:00 02/20/17 08:00 02/20/17 08:00 02/20/17 08:00 Intake & Output 02/19/17 02/20/17 02/21/17 06:59 06:59 06:59 Intake Total 1750 2540 Output Total 1580 3400 Balance 170 -860 Weight 75 kg 75 kg General appearance: PRESENT: no acute distress, cooperative, well-developed Head exam: PRESENT: normocephalic Eye exam: PRESENT: EOMI Mouth exam: PRESENT: moist, neck supple Neck exam: ABSENT: JVD Respiratory exam: PRESENT: clear to auscultation mendez. ABSENT: rhonchi, wheezes Cardiovascular exam: PRESENT: RRR. ABSENT: gallop GI/Abdominal exam: PRESENT: normal bowel sounds, soft, tenderness - Mild on the epigastric area. ABSENT: distended, rebound Extremities exam: ABSENT: pedal edema Psychiatric exam: ABSENT: agitated Focused psych exam: PRESENT: restlessness Skin exam: PRESENT: dry, warm. ABSENT: cyanosis Results Laboratory Results: 02/20/17 04:48 02/20/17 04:48 02/20/17 02/20/17 04:48 04:48 WBC 5.6 RBC 3.71 L Hgb 12.2 L Hct 35.4 L MCV 95 MCH 33.0 MCHC 34.5 RDW 13.5 Plt Count 151 Sodium 140.0 Potassium 3.9 Chloride 105 Carbon Dioxide 26 Anion Gap 9 BUN 4 L Creatinine 0.72 Est GFR ( Amer) > 60 Est GFR (Non-Af Amer) > 60 Glucose 89 Calcium 8.8 Amylase 147 H Lipase 1766.9 H Assessment & Plan - Diagnosis (1) Pancreatitis, acute Qualifiers: Pancreatitis type: alcohol induced Acute pancreatitis complication: no infection or necrosis Qualified Code(s): K85.20 - Alcohol induced acute pancreatitis without necrosis or infection Is this a current diagnosis for this admission?: Yes (2) Alcohol abuse Is this a current diagnosis for this admission?: Yes (3) Alcoholic hepatitis Qualifiers: Ascites presence: without ascites Qualified Code(s): K70.10 - Alcoholic hepatitis without ascites Is this a current diagnosis for this admission?: Yes (4) Elevated blood pressure reading without diagnosis of hypertension Is this a current diagnosis for this admission?: Yes - Time Time Spent with patient: 25-34 minutes - Plan Summary Plan Summary: I have discussed again at length with patient regarding bowel rest and he understood. He wanted to try clear liquids this time, instead of full liquids. We will advance diet to clear liquids, recheck CT of the abdomen and pelvis in the morning, recheck amylase and lipase, as well as WBC and electrolytes. Continue supportive care.
[2017-02-20] MEDS: NORMAL SALINE 1000 ML 1,000 ML with THIAMINE HCL 100 MG, MVI, ADULT NO.1 WITH VIT K 10 ... IV PRN ×4 (13:35)
[2017-02-21] MEDS: HYDROMORPHONE HCL INJ/PF 2 MG/ML AMPULE IV PRN ×6 (02:21→21:23)
[2017-02-21] MEDS: DEXTROSE 5%-NORMAL SALINE 1,000 ML IV PRN (04:59)
[2017-02-21 06:04] LABS: HEMATOCRIT 33.9 % (37.9-51.0); HEMOGLOBIN 11.6 g/dL (13.5-17.0); HGB HCT DIFFERENCE 0.9; MEAN CORPUSCULAR HEMOGLOBIN 32.5 pg (27.0-33.4); MEAN CORPUSCULAR HGB CONC 34.2 g/dL (32.0-36.0); MEAN CORPUSCULAR VOLUME 95 fl (80-97); RED BLOOD COUNT 3.56 10^6/uL (4.35-5.55); RED CELL DISTRIBUTION WIDTH 13.9 % (11.5-14.0)
[2017-02-21 06:30] LABS: AMYLASE 139 U/L (30-110); ANION GAP 10 (5-19); BLOOD UREA NITROGEN 4 mg/dL (7-20); CALCIUM 8.6 mg/dL (8.4-10.2); CARBON DIOXIDE 27 mmol/L (22-30); CHLORIDE 104 mmol/L (98-107); CREATININE RESULT 0.75 mg/dL (0.52-1.25); GLUCOSE 120 mg/dL (75-110); LIPASE 1943.9 U/L (23-300); POTASSIUM 3.8 mmol/L (3.6-5.0)
--- NOTE | 2017-02-21 08:39 | Physician Advisory Note ---
Physician Advisor ProgressNote .: Pursuant to the plan for [facility], I have reviewed the medical record for this patient. Physician Advisor Statement: Possible documentation opportunities if attending agrees: 1. Medical necessity: please document what attending is concerned about - each day, explicitly why pt can't go home: "continued/recurrent abd pain requiring IV opioids, recurrent tachycardia, unable to progress beyond clear liquid diet in setting of significant underlying malnutrition, concern for developing pancreatic pseudocyst or abscess or , restlessness noted on eval 02/20 concerning for ...". 2. "suspected protein-calorie malnutrition [state mild, mod, or severe] with BMI 23.9, BUN only 4, alcoholism, anemia, ____[?wt loss, ?appetite loss, ]" [if possible, give specifics on intake, wt loss, loss of SQ fat & muscle mass, diminished hand box order person strength, & clinical importance such as (A) nutritional assessment ordered, (B) modified diet or supplements ordered, (C) additional labs ordered, (D) prolonged wound healing time, (E) delayed infxn clearance] As always, if concerned about any unstable VS or abnormal labs, please comment on them - what bad things they might indicate, why they concern you - & note what doing about them. Please also document each day the potential clinical problems you are concerned could occur if pt not kept in hospital for tx at this time. (These points are tatum - if present in each note, attending's status decision should be sufficiently supported.) Discussion: 51yo male w/ chronic co-morbidities including asthma, GERD, tobacco & EtOH dependency, HTN (per ED nsg note), recent adm for acute pancreatitis/hepatitis ( left AMA for court date, returned due to continued sx) - presented very early 02/18 AM to ED w/epigastric pain, N/V despite liquid diet. (+) T 99.2, HR 101, RR17, 164/91, WBC 7.4, Hgb 13.6, plts 147, Na 138, K 3.3, bicarb 31, BUN 6, Cr 0.72, glc 133, lipase 1796, alb 3.4 Attending ordered ice chips only po, IVF @200, IV Pepcid, prn IV pain/nausea meds. Status: Initially appropriate to start as Outpt obs. Was advanced to clear liquids within hours. Nsg note in PM indicated (+)abd pain & tenderness, diarrhea, & HR up to 99 in PM. Pt required IV Dilaudid 2x the first PM. But next day, 02/19, although tolerating po clears without vomiting, pt was still having abd pain so attending ordered change to NPO, with continued aggressive IVF at 150, continued pain mgmt w/IV Dilaudid prn, f/u labs, K replacement. Nsg notes indicate pt w/intermittent tachycardia (95 in AM, 90 in PM), still w/abd pain & tenderness in PM. Pt required IV Dilaudid for pain 3x total on 02/19. On 02/20, pt adamant about "eating", though still w/mild epigastric tenderness. Attending allowed clear liquids & ordered CT for AM along w/further labs f/u, while continuing IVF @150. Nsg note in PM reports continued abd pain. Pt required IV Dilaudid 5x on 02/20 for pain. Lipase levels remain quite elevated - even higher now than on arrival. This is not a pt able to be managed as outpt. He has had continued pain despite increasing frequency of IV opioid tx, & has not yet tolerated significant advancement of diet. Tx in inpatient hospital setting medically reasonable & necessary to protect pt' s health, safety, & medical condition. Appropriate for Inpt status. Thanks for your help with documentation accuracy/specificity improvement! Jonna Antonio MD [facility] Physician Advisor, Fellow of Hospital Medicine
[2017-02-21] MEDS: ENOXAPARIN SODIUM INJ 40 MG/0.4 ML DISP.SYRIN SUBCUT SCH (09:16)
[2017-02-21] MEDS: FAMOTIDINE INJ/PF 20 MG/2 ML SDV IV SCH ×2 (09:16→21:19)
--- NOTE | 2017-02-21 09:42 | PDOC PROGRESS REPORT ---
Subjective Progress Note for:: 02/21/17 Subjective:: Patient able to tolerate oral intake, lipase level increased. No nausea or vomiting. Abdominal pain is less. No diarrhea. No chills or fever. 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 Patient denies any chest pain or shortness of breath nor any lightheadedness or dizziness. He admits that he had abdominal pain in the past especially when he drinks, he was never hospitalized, at one time he was, but he is unaware of any diagnosis of pancreatitis at all. Physical Exam Vital Signs: Temp Pulse Resp BP Pulse Ox 98.5 F 73 16 137/85 H 100 02/21/17 08:00 02/21/17 08:00 02/21/17 08:00 02/21/17 08:00 02/21/17 08:00 Intake & Output 02/20/17 02/21/17 02/22/17 06:59 06:59 06:59 Intake Total 2540 2360 Output Total 3400 2210 Balance -860 150 Weight 75 kg 73.4 kg General appearance: PRESENT: no acute distress, cooperative, well-developed Head exam: PRESENT: normocephalic Eye exam: PRESENT: EOMI Mouth exam: PRESENT: moist, neck supple Neck exam: ABSENT: JVD Respiratory exam: PRESENT: clear to auscultation mendez. ABSENT: rhonchi, wheezes Cardiovascular exam: PRESENT: RRR. ABSENT: gallop GI/Abdominal exam: PRESENT: soft, tenderness - Minimal discomfort to the epigastric area, improving.. ABSENT: distended Extremities exam: ABSENT: pedal edema Neurological exam: PRESENT: alert, awake, oriented to situation Skin exam: PRESENT: dry, warm. ABSENT: cyanosis Results Laboratory Results: 02/21/17 04:48 02/21/17 04:48 02/21/17 02/21/17 04:48 04:48 WBC 6.0 RBC 3.56 L Hgb 11.6 L Hct 33.9 L MCV 95 MCH 32.5 MCHC 34.2 RDW 13.9 Plt Count 174 Sodium 141.0 Potassium 3.8 Chloride 104 Carbon Dioxide 27 Anion Gap 10 BUN 4 L Creatinine 0.75 Est GFR ( Amer) > 60 Est GFR (Non-Af Amer) > 60 Glucose 120 H Calcium 8.6 Amylase 139 H Lipase 1943.9 H Assessment & Plan - Diagnosis (1) Pancreatitis, acute Qualifiers: Pancreatitis type: alcohol induced Acute pancreatitis complication: no infection or necrosis Qualified Code(s): K85.20 - Alcohol induced acute pancreatitis without necrosis or infection Is this a current diagnosis for this admission?: Yes (2) Alcohol abuse Is this a current diagnosis for this admission?: Yes (3) Alcoholic hepatitis Qualifiers: Ascites presence: without ascites Qualified Code(s): K70.10 - Alcoholic hepatitis without ascites Is this a current diagnosis for this admission?: Yes (4) Elevated blood pressure reading without diagnosis of hypertension Is this a current diagnosis for this admission?: Yes - Time Time Spent with patient: 25-34 minutes - Plan Summary Plan Summary: We will try to advance the patient's diet today. Patient's lipase level fluctuates, he probably has underlying chronic pancreatitis as well but is undiagnosed. We will recheck lipase level in the morning, repeat CT scan of the abdomen and pelvis. If there is no progression on the findings and the patient tolerated advanced diet, probably the patient has underlying chronic pancreatitis, and likely can be discharged.
--- NOTE | 2017-02-21 10:39 | EKG REPORT ---
SEVERITY:- NORMAL ECG - SINUS RHYTHM : Confirmed by: Lesly Ann 21-Feb-2017 10:38:52
[2017-02-21] MEDS: NORMAL SALINE 1000 ML 1,000 ML with THIAMINE HCL 100 MG, MVI, ADULT NO.1 WITH VIT K 10 ... IV PRN ×4 (18:22)
[2017-02-22 05:35] LABS: HEMATOCRIT 35.9 % (37.9-51.0); HEMOGLOBIN 12.6 g/dL (13.5-17.0); HGB HCT DIFFERENCE 1.9; MEAN CORPUSCULAR HEMOGLOBIN 33.3 pg (27.0-33.4); MEAN CORPUSCULAR HGB CONC 35.2 g/dL (32.0-36.0); MEAN CORPUSCULAR VOLUME 95 fl (80-97); RED BLOOD COUNT 3.79 10^6/uL (4.35-5.55); RED CELL DISTRIBUTION WIDTH 13.6 % (11.5-14.0); WHITE BLOOD COUNT 7.2 10^3/uL (4.0-10.5)
[2017-02-22 06:05] LABS: AMYLASE 194 U/L (30-110); ANION GAP 12 (5-19); BLOOD UREA NITROGEN 5 mg/dL (7-20); CALCIUM 9.4 mg/dL (8.4-10.2); CARBON DIOXIDE 27 mmol/L (22-30); CHLORIDE 103 mmol/L (98-107); CREATININE RESULT 0.72 mg/dL (0.52-1.25); GLUCOSE 115 mg/dL (75-110); MAGNESIUM 1.9 mg/dL (1.6-2.3); POTASSIUM 4.2 mmol/L (3.6-5.0); SODIUM 141.6 mmol/L (137-145)
[2017-02-22 06:14] LABS: LIPASE 2663.9 U/L (23-300)
[2017-02-22 08:43] VITALS: BP 130/85
[2017-02-22] MEDS: ENOXAPARIN SODIUM INJ 40 MG/0.4 ML DISP.SYRIN SUBCUT SCH (08:45)
[2017-02-22] MEDS: FAMOTIDINE INJ/PF 20 MG/2 ML SDV IV SCH (10:02)
[2017-02-22] MEDS: HYDROMORPHONE HCL INJ/PF 2 MG/ML AMPULE IV PRN (10:02)
--- NOTE | 2017-02-22 17:48 | PDOC DISCHARGE SUMMARY ---
General - Admit/Disc Date/PCP Admission Date/Primary Care Provider: 02/21/17 14:16 Discharge Date: 02/22/17 - Discharge Diagnosis (1) Pancreatitis, acute Is this a current diagnosis for this admission?: Yes (2) Alcohol abuse Is this a current diagnosis for this admission?: Yes (3) Alcoholic hepatitis Is this a current diagnosis for this admission?: Yes (5) Hypokalemia Is this a current diagnosis for this admission?: Yes (6) Asthma Is this a current diagnosis for this admission?: Yes (7) Tobacco dependency Is this a current diagnosis for this admission?: Yes - Additional Information Resuscitation Status: Full Code Discharge Diet: Regular Discharge Activity: Activity As Tolerated Home Medications: Nicotine [Nicoderm 21 mg/24 Hr Transderm Patch] 1 each TD DAILYP PRN patch.td24 02/22/17 Oxycodone HCl 10 mg PO Q4HP PRN #30 syringe 02/22/17 History of Present Illness History of Present Illness: BHAVESH MATTHEWS is a 51 year old male who drinks a fifth of whiskey every day and a half who presented with abdominal pain. The patient had left AGAINST MEDICAL ADVICE on the of this month to attend a court date. The patient has been a heavy drinker and presented with pancreatitis. Hospital Course Hospital Course: 51-year-old gentleman who presented with alcoholic pancreatitis. He was made nothing by mouth and given IV fluids as well as IV narcotics. He had resolution of his symptoms clinically however his lipase remain elevated suspicious for chronic pancreatitis. Patient was tolerating his diet with minimal pain and not required any IV narcotics was felt that he was stable for discharge to home. He has been counseled that he needs to quit smoking and quit drinking alcohol. Patient was noted have hypokalemia which has been treated. Physical Exam Vital Signs: Temp Pulse Resp BP Pulse Ox 98.3 F 73 20 130/85 H 99 02/22/17 09:52 02/22/17 09:52 02/22/17 09:52 02/22/17 09:52 02/22/17 09:52 Intake & Output 02/21/17 02/22/17 02/23/17 06:59 06:59 06:59 Intake Total 1605 Output Total 800 Balance 805 General appearance: PRESENT: no acute distress Eye exam: PRESENT: conjunctiva pink. ABSENT: scleral icterus Mouth exam: PRESENT: moist, tongue midline Neck exam: ABSENT: JVD Respiratory exam: PRESENT: clear to auscultation mendez. ABSENT: rales, rhonchi, wheezes Cardiovascular exam: PRESENT: RRR. ABSENT: diastolic murmur, rubs, systolic murmur GI/Abdominal exam: PRESENT: normal bowel sounds, soft. ABSENT: distended, guarding, mass, organolmegaly, rebound, tenderness Extremities exam: ABSENT: calf tenderness, clubbing, pedal edema Neurological exam: PRESENT: alert, awake, oriented to person, oriented to place , oriented to time, oriented to situation, CN II-XII grossly intact. ABSENT: motor sensory deficit Psychiatric exam: PRESENT: appropriate affect Skin exam: PRESENT: dry, intact, warm. ABSENT: cyanosis, rash Results Laboratory Results: 02/22/17 04:50 02/22/17 04:50 02/22/17 02/22/17 04:50 04:50 WBC 7.2 RBC 3.79 L Hgb 12.6 L Hct 35.9 L MCV 95 MCH 33.3 MCHC 35.2 RDW 13.6 Plt Count 187 Sodium 141.6 Potassium 4.2 Chloride 103 Carbon Dioxide 27 Anion Gap 12 BUN 5 L Creatinine 0.72 Est GFR ( Amer) > 60 Est GFR (Non-Af Amer) > 60 Glucose 115 H Calcium 9.4 Magnesium 1.9 Amylase 194 H Lipase 2663.9 H Impressions: Abdomen CT 02/21/17 06:00 IMPRESSION: Improved pancreatitis compared to 02/16/2017 Qualifiers PATEINT BEING DISCHARGED WITH ANY OF THE FOLLOWING DIAGNOSIS?: No Plan Discharge Plan: Patient is discharged home in stable condition. He will follow-up with his primary care doctor in 1-2 weeks. Time Spent: Greater than 30 Minutes
== END 2017-02-22 11:02 | disposition home or self-care (01) | DRG 440 ==
LOC: ER 00:15 → EH 04:38 → UNDOADMOB 04:38 → EH 05:51 → 4S 08:11 → OBSVTOIN 02-21 14:16
PROVIDERS: ADMIT Family Medicine; ATTEND Family Medicine
PROC: 3E0F73Z Introduction of Anti-inflammatory into Respiratory Tract, Via Natural or Artificial Opening (ICD-10-PCS; principal; 2017-02-18)
DX: K85.20 Alcohol induced acute pancreatitis without necrosis or infection (principal); K70.10 Alcoholic hepatitis without ascites; E87.6 Hypokalemia; F17.210 Nicotine dependence, cigarettes, uncomplicated; J45.20 Mild intermittent asthma, uncomplicated; M19.90 Unspecified osteoarthritis, unspecified site; Z82.3 Family history of stroke; Z83.3 Family history of diabetes mellitus; Z82.49 Family history of ischemic heart disease and other diseases of the circulatory system; Z80.9 Family history of malignant neoplasm, unspecified; Z91.19 Patient's noncompliance with other medical treatment and regimen
CPT/HCPCS: 36415; 74160; 80048; 80076; 80307; 82150; 83690; 83735; 85025; 85027; 93005; 93010; 94799; G0378; J1170; J1650; J2060; J2270; J2405; J3411; J3480; J3490; J7030; J7050; S0028